=== PATIENT | female | born 1945 | race Caucasian/White ===

== ENCOUNTER → 2017-09-11 | Outpatient (CLI) | payer MEDICARE | LOC: LAB 15:44 | PROVIDERS: ATTEND Internal Medicine Cardiovascular Disease | DX: I48.91 Unspecified atrial fibrillation (principal) | CPT/HCPCS: 36415; 84443 ==

== ENCOUNTER 2018-07-11 00:34 | Day surgery (SDC) | payer MEDICARE ==
[~2018-07-11] VITALS: Ht 157.5 cm; Wt 63.5 kg
[2018-07-11] VITALS (11 sets, daily range): BP systolic 109–154; BP diastolic 64–89
[~2018-07-11 00:34] MED LIST: LEVO88TA43 PO; PRED-1 PO; TOFA11TA PO; TRAM-420 PO
[2018-07-11] MEDS ORDERED: LIDOCAINE MPF 1% 5 ML VIAL ONE (07:27)
[2018-07-11] MEDS ORDERED: PROPOFOL EMUL(*) 10MG/ML 20 ML 40 ML ONE (07:27)
[2018-07-11] MEDS ORDERED: NORMOSOL R SOLN(*) 1000 ML BAG 1,000 ML IV PRN (07:45)
[2018-07-11] MEDS ORDERED: LIDOCAINE/SOD BICARB 8.4% SYR ID ONE (07:45)
[2018-07-11] MEDS ORDERED: ESMOLOL 10 MG/ML 10ML SDV ONE (09:16)
[2018-07-11] MEDS ORDERED: PANT40TA65 PO (09:27)
--- NOTE | 2018-07-11 09:28 | Short(Outpt) Discharge Summary ---
Discharge Summary Reason for Hosp/Final Diag: (1) Vomiting Hospital Course & Plan: pt presented for upper endoscopy. she tolerated the procedure well and there were no complications. path pending. pt will be discharged when criteria met. Departure Discharge to: Home Discharge Instructions Home Meds Active Scripts Pantoprazole Sodium (PANTOPRAZOLE SODIUM) 40 Mg Tablet.dr, 1 TAB PO DAILY, #30 CAP 1 Refill Prov:NEL BUSH 07/11/18 Reported Medications Tofacitinib Citrate (Xeljanz Xr) 11 Mg Tab.er.24h, 11 MG PO DAILY 06/30/18 Prednisone 10 Mg Tab (PREDNISONE 10 MG TAB) 10 Mg Tablet, 5 MG PO BID, #3 TAB 06/30/18 Tramadol Hcl (TRAMADOL HCL) 50 Mg Tablet, 50 MG PO Q4-6H PRN for PAIN, TAB 06/30/18 Levothyroxine Sodium (SYNTHROID) 88 Mcg Tablet, 88 MCG PO QDAY 06/30/18 Diet: Regular Activity: As Tolerated Special Instructions: START WITH SOFT FOODS AND LOTS OF LIQUIDS AND INCREASE YOUR DIET TOLERATED. TOOK SEVERAL BIOPSIES THROUGHOUT STOMACH AND WILL CALL YOU WITH RESULTS IN ABOUT A WEEK. NEL BUSH Jul 11, 2018 09:28
--- NOTE | 2018-07-11 13:15 | NUR ---
0908 PT ARRIVED TO [place] VIA CART, SBAR FROM [facility] RN AND DR. WILLOUGHBY. VSS, HR ACCEPTABLE CONSIDERING MEDS GIVEN DURING PROCEDURE, COPIOUS SECRETIONS REPORTED, NO NEED FOR SUCTION WHILE IN [place]. 0915 VSS, PT REMAINS IN L LAT POSITION, RESTING, NIECE BLAINE, AT BEDSIDE, DOWN TO 3L MASK 0945 PT TOLERATING WATER, CONTINUES TO REST, WEANING OFF OF O2, DR. BUSH AT BEDSIDE TO DISCUSS PROCEDURE AND BIOPSIES 0950 DR. WILLOUGHBY AT BEDSIDE 1000 PT SATS DROPPING FREQUENTLY 1010 PLACED BACK ON 1L NC 1030 WEANING BACK OFF OF 02 1100 SATS STILL DROPPING WHEN PT RESTS, STARTED INSTRUCTION ON INCENTIVE SPIROMETRY [address] WILLOUGHBY WITH REQUEST FOR HOME O2 1145 PC TO [facility] FOR HOME O2 1200 ORTHOSTATIC VITALS STABLE, ALLOWED TO DRESS, IV D/C'D, PRESSURE DRESSING APPLIED 1220 D/C INSTRUCTIONS COVERED, 02 COMPANY AT BEDSIDE, REASSESSED, SORE THROAT, NO PAIN 1230 PT OUT VIA WC ALONG WITH NIECE BLAINE TO VEHICLE OUTSIDE OF ER. PT FOLDER STILL IN ROOM. LEFT AT ER DESK, PC TO PT, LEFT MSG WITH INSTRUCTIONS TO P/U AT ER DESK TO HAVE PRESCRIPTION FILLED.
== END 2018-07-11 12:30 | disposition home or self-care (01) ==
LOC: OR 00:34
PROVIDERS: ATTEND Surgery
DX: K29.70 Gastritis, unspecified, without bleeding (principal)
CPT/HCPCS: 43239; 87077; 88305; 88313; J2001; J2704; J3490

== ENCOUNTER → 2018-07-18 | Outpatient (CLI) | payer MEDICARE ==
[~2018-07-18] MED LIST changes: +BARIUM SULFATE 176 GM BTL PO ONE; +BARIUM SULFATE 340 GM POWD ONE; +PANT40TA65 PO
--- NOTE | 2018-07-18 14:19 | RADIOLOGY IMAGING REPORT ---
FACILITY: [facility] - [place] PATIENT NAME: Antonia Hurtado : 1945 MR: [id number] V: [id number] EXAM DATE: ORDERING PHYSICIAN: NEL BUSH TECHNOLOGIST: Location: [facility] [place] Patient: Antonia Hurtado : 1945 Visit/Account:[id number] Date of Sevice: 07/18/2018 Exam type: XR UPPER GI SER W/AIR W/KUB History: evaluate upper GI stenosis, nausea and vomiting, history of gastric bypass approximately 20 years ago Comparison: None. Findings: There post surgical changes from a gastric bypass with a small gastric pouch. There is a small to mo derate hiatal hernia and a large amount of gastroesophageal reflux. The junction of the cervical and thoracic esophagus was not well seen due to overlapping artifacts from the patient's shoulder arthro plasty. The patient could not stand for the examination and could not lay in the GONZALES position theref ore the images of the esophagus were obtained in lateral projection. There appear to be a large amou nt of retained secretions within the esophagus. 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 There was a small sacculation of barium extending posterio r to the anastomosis which may represent a small diverticulum or an old walled off anastomotic leak. The fluoroscopy dose area product was 1051.08 micro-Burton per meter squared. There are postsurgical changes from a gastric bypass with a small gastric pouch. There is a very tig ht stricture at the gastrojejunal anastomosis. Several large marginal ulcers are present at the anas tomotic site in addition to a small sacculation barium extending posterior to the anastomosis which m ay represent a small diverticulum or an old walled off anastomotic leak. There is a small to moderate hiatal hernia and a large amount of gastroesophageal reflux. Large amou nt of retained secretions were noted within the esophagus. Report Dictated By: Gloria Springer MD at 07/18/2018 1:56 PM Report E-Signed By: Gloria Springer MD at 07/18/2018 2:14 PM WSN:[email or web address]
== END ==
LOC: RAD 07:10
PROVIDERS: ATTEND Surgery
DX: K44.9 Diaphragmatic hernia without obstruction or gangrene (principal); Z98.84 Bariatric surgery status; K21.9 Gastro-esophageal reflux disease without esophagitis; K25.9 Gastric ulcer, unspecified as acute or chronic, without hemorrhage or perforation
CPT/HCPCS: 74247

== ENCOUNTER 2018-11-24 14:22 | Emergency (ER) | payer OTHER, MEDICARE ==
[~2018-11-24 14:22] MED LIST changes: -BARIUM SULFATE 176 GM BTL PO ONE; -BARIUM SULFATE 340 GM POWD ONE
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
[2018-11-24] MEDS ORDERED: DIPHTH/TETANUS/ACEL. PERTUSSIS IM ONLY ONE (14:45)
[2018-11-24] MEDS ORDERED: TETRACAIN/EPI/LIDO GEL 3ML SYR TP ONE (14:45)
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
[2018-11-24] MEDS ORDERED: HYDR-385 PO (16:05)
[2018-11-24 16:09] VITALS: BP 139/70
== END 2018-11-24 16:22 | disposition home or self-care (01) ==
LOC: ER 14:27
DX: S20.212A Contusion of left front wall of thorax, initial encounter (principal); S51.812A Laceration without foreign body of left forearm, initial encounter; V47.0XXA Car driver injured in collision with fixed or stationary object in nontraffic accident, initial encounter
CPT/HCPCS: 71046; 90471; 90715; 99283